=== PATIENT | male | born 1990 | race Caucasian/White ===

== ENCOUNTER 2025-04-10 10:26 | Emergency (ER) | payer MEDICAID, SELFPAY ==
[2025-04-10 10:32] VITALS: BP 142/92; PULSE 76; RESP 17; TEMP 36.5; O2SAT 99
[2025-04-10 10:33] VITALS: PULSE 88; RESP 18; O2SAT 99; BMI 22.1; BMI 25.1
--- NOTE | 2025-04-10 10:56 | PC.NURSE ---
Patient EDWARD from [facility] on a 5150 hold due to gravely disabled, and HI. Patient arrived to ED A&O denies SI, HI, AH, VH. Patient calm cooperative. POC updated patient verbalized understanding.
[2025-04-10 11:18] LABS: Amphetamine/Methamp Scrn,U Negative (Negative); Barbiturate Screen,Urine Negative (Negative); Benzodiazepines Screen,Urine Negative (Negative); Benzoylecgonine Screen, Ur Negative (Negative); Fentanyl Screen,Urine Negative (Negative); Opiate Screen,Urine Negative (Negative); THC Screen,Urine Positive (Negative)
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
[2025-04-10 12:30] LABS: Alcohol, Urine Negative (Negative); Amphetamine/Methamp Scrn,U Negative (Negative); Barbiturate Screen,Urine Negative (Negative); Benzodiazepines Screen,Urine Negative (Negative); Benzoylecgonine Screen, Ur Negative (Negative); Fentanyl Screen,Urine Negative (Negative); Opiate Screen,Urine Negative (Negative); THC Screen,Urine Positive (Negative)
[2025-04-10 12:53] VITALS: BP 115/65; PULSE 68; RESP 17; TEMP 36.7; O2SAT 100
--- NOTE | 2025-04-10 13:44 | PC.CC ---
Patient is a 35 year-old male who presents to the hospital on a 5150-hold by Clinician, Laura Johnson for Danger to Others and Gravely Disabled. It was reported on the hold that patient?s agitation was escalating, becoming argumentative, with bizarre/delusional statements. Patient appeared disheveled and dirty with disorganized thinking and speech. ASWRoya made face to face contact with patient introduced self, role, and reason for visit. Patient presents as alert to self, but not oriented. ASW disclosed limits of confidentiality as well. Patient made appropriate eye contact. Patient?s thought process was disorganized, delusional, and bizarre statements. Patient reports visual and auditory hallucinations. Patient stated to this conventional mortgage underwriter, ?I?m at a crazy people place. People will not stop harassing me.? At the time of encounter patient denied suicidal and homicidal ideations, visual and auditory hallucination. Patient denied history of mental health and denied past suicide attempts. Patient stopped engaging and requested to be left alone. ASW made telephone contact with [facility], staff Carla Rivers reports patient is not connected to them and has no history. Patient declined for labs to be drawn but did provide a urine for toxicology which was positive for Marijuana. Patient is able to ambulate independently and complete his own ADLs. Patient scored Low-Risk on the [place] Screening. Upon clinical consultation with INDEXER, Delfina Scott patient?s 5150-hold will be upheld. ASW provided patient with advisement that 5150-hold will be upheld. Patient provided with patient?s rights handbook. ASW provided updated discharge plan to [facility] Facility to Dr. Antoine, wheelage clerk Lanise, and bedside AMARIS Covarrubias.
--- NOTE | 2025-04-10 15:12 | PC.NURSE ---
Report given to AMARIS Ma from [facility].
--- NOTE | 2025-04-10 15:19 | PC.CC ---
Patient was accepted to [facility] BX by Dr. Preciado into unit 3. Francesca provided accepting information. Patient was provided with accepting information. Dr. Antoine, spa manager [place], and bedside RN Marci were made aware patient was accepted and update discharge plan to [facility].
[2025-04-10 15:44] VITALS: BP 137/86; PULSE 75; RESP 17; TEMP 36.6; O2SAT 100
--- NOTE | 2025-04-10 17:31 | PC.NURSE ---
Patient eloped from Room 7 after web content & social media manager informed patient he was going to [facility]. [employer] called and notified.
--- NOTE | 2025-04-10 17:31 | PC.CC ---
Patient eloped from the ED this director underwriter sales made contact with dispatch with [place] [employer] to notify them that patient is on a 5150-hold for Danger to Others and Gravely Disabled. Patient was wearing black shorts and no shirt unknown if shoes were worn.
--- NOTE | 2025-04-10 18:24 | PC.CC ---
ASW, made contact with [facility] to inform them the patient had eloped. ASW made telephone contact with [facility] to notify them to cancel transportation.
== END 2025-04-10 18:33 | disposition left against medical advice (07) ==
PROVIDERS: Emergency Provider Emergency Medicine
DX: F91.9 Conduct disorder, unspecified (principal); Z53.29 Procedure and treatment not carried out because of patient's decision for other reasons
CPT/HCPCS: 80048; 80307; 80320; 80329; 85025; 96127; 99284; G0480